=== PATIENT | male | born 1960 | race Caucasian/White ===

== ENCOUNTER 2022-09-11 17:05 | Outpatient (CLI) | payer OTHER, SELFPAY ==
[2022-09-11 21:34] LABS: Chloride* 103 mmol/L (96-114)
[2022-09-11 21:35] LABS: Potassium* 3.9 mmol/L (3.6-5.1); Sodium* 137 mmol/L (135-149)
[2022-09-11 21:37] LABS: Creatinine* 0.9 mg/dL (0.5-1.5); Estimated Glomerular Filt Rate 97 ml/min
[2022-09-11 21:38] LABS: Blood Urea Nitrogen* 20 mg/dL (7-30); Calcium* 9.3 mg/dL (8.4-10.6); Carbon Dioxide* 27 mmol/L (20-32); Glucose* 107 mg/dL (60-115)
== END 2022-09-11 17:06 | disposition home or self-care (01) ==
LOC: LKVREF 17:06
PROVIDERS: PCP Emergency Medicine; Visit Provider Emergency Medicine
DX: Z01.818 Encounter for other preprocedural examination (principal)
CPT/HCPCS: 80048

== ENCOUNTER 2022-09-17 08:24 | Day surgery (SDC) | payer OTHER, SELFPAY ==
[2022-09-17] VITALS (11 sets, daily range): BP systolic 116–145; BP diastolic 69–90; PULSE 60–77; RESP 16; TEMP 36.2–36.7; O2SAT 92–98; BMI 29.2
[2022-09-17] MEDS: LACTATED RINGERS 1000 ML 1,000 ML 100 ML IV (08:30)
[2022-09-17] MEDS: CEFAZOLIN 2 GM INJ IVP (09:03)
[2022-09-17] MEDS: BUPIVACAINE 0.25% 30 ML INJECTION (10:15)
--- NOTE | 2022-09-17 10:44 | W.ANESCHARGE ---
Anesthesia Charges Start Date/Time Anesthesia Start Date: 09/17/22 Anesthesia Start Time: 08:53 Stop Date/Time Anesthesia Stop Date: 09/17/22 Anesthesia Stop Time: 10:41 Summary Emergency: No
--- NOTE | 2022-09-17 10:53 | W.ANESCHARGE ---
Anesthesia Charges Start Date/Time Anesthesia Start Date: 09/17/22 Anesthesia Start Time: 08:53 Stop Date/Time Anesthesia Stop Date: 09/17/22 Anesthesia Stop Time: 10:41 Summary Emergency: No
[2022-09-17] MEDS: LACTATED RINGERS 1000 ML 1,000 ML 50 ML IV (11:00)
[2022-09-17] MEDS: HYDROCODONE-ACETAMIN 5-325 MG 1 TAB PO (11:22)
--- NOTE | 2022-09-17 15:20 | P.GSOP_ITS ---
Operative Note Date of procedure: 09/17/22 Type of Procedure: 1. Open umbilical hernia repair with mesh. Procedure Description: After discussing the risks and benefits of the procedure, the patient signed informed consent.? The operative site was marked and the patient was brought to the operating room and placed on the operating table in supine position.? Care was taken to pad the patient's pressure points.?? The patient was then intubated by anesthesia.?? The operative site was then prepped and draped in the usual sterile fashion.? A time-out was then performed. Local anesthetic was injected at the surgical site. A curvilinear skin incision was made with a scalpel just above umbilicus. Subcutaneous tissue was dissected with electrocautery down to the hernia sac and anterior fascia. The hernia sac was dissected off of the anterior fascia and subcutaneous fat around the fascial defect was dissected away from the fascial defect with cautery. The hernia sac contained preperitoneal fat. A peritoneal opening was noted in the hernia sac and that was oversewn with 3-0 vicryl. I then developed preperitoneal space for mesh insertion. This was done with cautery. The Fascial defect was about 13-15 mm. Hemostasis was achieved with cautery. A small Ventralex ST mesh patch was then inserted into preperitoneal space and secured to the fascia using 0-0 Neurolon interrupted stitches. I examined my closure and no defects were identified between the fascia and the mesh. Fascia was re-approximated over the mesh with a running 2-0 Vicryl stitch. Additional local anesthetic was injected into subcutaneous tissues. An umbilicus was tacked down with interrupted 3-0 Vicryl stitches. Redundance skin was excised to achieved a more pleasing cosmetic umbilicus. Subdermal layer was closed with interrupted sutures using 3- 0 Vicryl. Skin was closed with 4-0 Monocryl using subcuticular stitch. Steri strips were applied over the incision. I then placed a folded sterile 4x4 gauze into the umbilicus and over the incision and covered it with Tegaderm. All counts were correct at the end of the case. Patient tolerated the procedure well and was transferred to PACU without any complications. Findings: 13-15 mm fascial defect, repaired with small mesh patch. Anesthesia: GETA Surgeon: Pedro Pablo Jackman MD Estimated blood loss (mL): 10 Condition: stable Disposition: PACU
== END 2022-09-17 12:03 | disposition home or self-care (01) ==
PROVIDERS: Surgery; PCP Emergency Medicine; Visit Provider Surgery
PROC: (CPT 49585; principal; 2022-09-17 09:00)
DX: K42.9 Umbilical hernia without obstruction or gangrene (principal)
CPT/HCPCS: 49585; 00830; A9270; C1781; J0330; J0690; J1100; J1885; J2250; J2405; J2704; J3010; J3490; J7120

== ENCOUNTER 2022-10-08 08:17 | Outpatient (CLI) | payer OTHER, SELFPAY | END 2022-10-08 08:18 | disposition home or self-care (01) | LOC: OP CLINIC 08:17 | PROVIDERS: PCP Emergency Medicine; Visit Provider Surgery | DX: Z12.11 Encounter for screening for malignant neoplasm of colon (principal); K57.30 Diverticulosis of large intestine without perforation or abscess without bleeding; K63.89 Other specified diseases of intestine; Z86.010 Personal history of colon polyps | CPT/HCPCS: 45380; 88305; 99153; J2250; J3010 ==

== ENCOUNTER 2022-12-25 13:42 | Outpatient (CLI) | payer OTHER, SELFPAY ==
[2022-12-25 14:55] VITALS: BP 151/82; PULSE 93
--- NOTE | 2022-12-25 17:19 | W.PM.STED ---
Stress Test Note Date Date of test: 12/25/22 Providers Primary care provider: Jyotsna Farr Stress test physician: Edvin Montez Stress Test Note Stress test ordered: Stress Echo Indication for test: Chest pain Results discussion: Patient is a really nice 62-year-old gentleman that presents for the above test after discussion the risks benefits and side effects and reviewing the cardiac stress test medical history form he would like to proceed pretest EKG shows normal sinus rhythm, with a ventricular rate of 71, blood pressure 150 6-93, standard Nayan protocol is employed over a time course of 9 minutes 1 seconds, achieved a metabolic equivalent of 10.5 Mets with a maximum heart rate of 153, which is 114% of the target, maximum blood pressure is 184/94. Test is terminated has fulfillment of protocol, he had no chest pain no shortness of breath, and was otherwise asymptomatic and condition was felt to be good review of the tracing showed no acute ST wave changes suggestive of ischemia, there is no dysrhythmias. Impression: Negative electrographic portion of stress echo, Follow up suggested: Await echo images these will be read by Cardiology and nuclear Medicine, clinical correlation with these will be needed, patient left this testing facility in excellent condition at back at baseline.
== END 2022-12-25 13:43 | disposition home or self-care (01) ==
LOC: STRESS 13:43
PROVIDERS: PCP Emergency Medicine; Visit Provider Family Medicine
DX: R07.9 Chest pain, unspecified (principal)
CPT/HCPCS: 93016; 93325; 93351

== ENCOUNTER 2024-07-30 13:18 | Outpatient (CLI) | payer OTHER, SELFPAY | END 2024-07-30 13:19 | disposition home or self-care (01) | PROVIDERS: PCP Emergency Medicine; Visit Provider Emergency Medicine | DX: E11.65 Type 2 diabetes mellitus with hyperglycemia (principal); Z79.84 Long term (current) use of oral hypoglycemic drugs; Z13.220 Encounter for screening for lipoid disorders | CPT/HCPCS: 80053; 80061; 82043; 82570 ==

== ENCOUNTER 2024-11-06 08:02 | Outpatient (CLI) | payer OTHER, SELFPAY | END 2024-11-06 08:03 | disposition home or self-care (01) | LOC: NFLDREF 11:32 | PROVIDERS: PCP Emergency Medicine; Referring Provider Emergency Medicine; Visit Provider Emergency Medicine | DX: E78.5 Hyperlipidemia, unspecified (principal); Z12.5 Encounter for screening for malignant neoplasm of prostate | CPT/HCPCS: 80061; G0103 ==

== ENCOUNTER 2025-06-17 08:33 | Outpatient (CLI) | payer OTHER, SELFPAY | END 2025-06-17 08:34 | disposition home or self-care (01) | PROVIDERS: PCP Emergency Medicine; Visit Provider Emergency Medicine | DX: E78.49 Other hyperlipidemia (principal); I10 Essential (primary) hypertension; E11.65 Type 2 diabetes mellitus with hyperglycemia; Z79.84 Long term (current) use of oral hypoglycemic drugs | CPT/HCPCS: 80048; 80061; 82043; 82570 ==